=== PATIENT | female | born 1960 | race Caucasian/White ===

== ENCOUNTER → 2016-09-05 | Outpatient (CLI) | payer BC ==
[2016-09-13 14:05] LABS: HPV 16 Detected (NOTDET); HPV 18 Not Detected (NOTDET)
== END ==
LOC: MW.CHOBGYN 11:54
PROVIDERS: ATTEND Nurse Practitioner Women's Health
DX: Z12.4 Encounter for screening for malignant neoplasm of cervix (principal); R87.619 Unspecified abnormal cytological findings in specimens from cervix uteri
CPT/HCPCS: 87624; G0145